=== PATIENT | male | born 1950 | race Caucasian/White ===

== ENCOUNTER 2016-05-16 15:40 | Emergency (ER) | payer MEDICARE, MEDICAID ==
[~2016-05-16] VITALS: Ht 177.8 cm; Wt 91.0 kg
[~2016-05-16 15:40] MED LIST: ASPI-611 PO; DIVA500T55 PO; DONE10TA15 PO; IBUP-1324 PO; MEMA10TA11 PO; METO25TA6 PO; MIRT15TA6 PO; NITR0.4T SL; OMEP-29 PO; OSEL75CA PO; SERT100T12 PO; SIMV20TA89 PO
--- OUTSIDE RECORDS SUMMARY | 2016-05-16 15:44 | XMS REPORT | Summary of Care ---
Author Author Maged Delgado M.D. Organization Unknown Address Unknown Phone Unavailable Care Team Providers Care Beer Cooler Name Role Phone Braxton Delgado M.D. Unavailable Unavailable Mago [address] Unavailable Unavailable Unavailable Unavailable Functional Status Name Dates Details Functional status health issues are not documented Status: Name Dates Details Cognitive status health issues are not documented Status: Problems Name Dates Details Confusion (Symptom) Status: Active Memory loss (780.93, R41.3) Status: Active High risk medication use (V58.69, Z79.899) Status: Active Alzheimer's disease (331.0, G30.9) Status: Active Medications Name Dates Details Divalproex Sodium ER 500 MG Oral Tablet Extended Release 24 Hour TAKE TWO TABLETS BY MOUTH ONCE DAILY Quantity: 60 Danny Jackson, Maged Limon * Start 19-Feb-2009 Active Aspirin 325 MG Oral Tablet TAKE 1 TABLET DAILY. * Refills: 0 * Start 20-Feb-2009 Active Nitroglycerin 0.4 MG Sublingual Tablet Sublingual TAKE DIRECTED. * Refills: 0 * Start 20-Feb-2009 Active Simvastatin 20 MG Oral Tablet TAKE 1 TABLET DAILY. * Refills: 0 * Start 20-Feb-2009 Active PriLOSEC 20 MG CPDR TAKE 1 CAPSULE DAILY. * Refills: 0 * Start 20-Feb-2009 Active Memantine HCl - 10 MG Oral Tablet Take One Tablet By Mouth Twice Daily * Quantity: 60 Refills: 5 Maged Delgado M.D. * Start 05-Feb-2016 Active Metoprolol Succinate ER 25 MG Oral Tablet Extended Release 24 Hour 1\2 tab po daily * Refills: 0 * Start 18-Jun-2009 Active Donepezil HCl - 10 MG Oral Tablet TAKE 1 TABLET DAILY. * Quantity: 30 Refills: 6 Maged Delgado M.D. * Start 16-Apr-2010 Active Sertraline HCl - 100 MG Oral Tablet TAKE 1 TABLET DAILY. * Refills: 0 Maged Delgado M.D. Start 16-Apr-2010 Active Allergies and Adverse Reactions Name Dates Details Penicillins (Allergy) Status: Active Procedures Procedure Dates Details History of Tonsillectomy History of Heart Surgery Procedures not documented Immunization Name Dates Details Immunizations not documented Social History Name Dates Details Unknown if ever smoked Vital Signs Date Test Result Details 25-Mar-2016 16:07 BP Systolic 104 mm[Hg] Status: Comments: Location: ; Position: BP Diastolic 60 mm[Hg] Status: Comments: Location: ; Position: Heart Rate 76 /min Status: Comments: Location: ; Weight 194 lb Status: Results Date Description Value Details Results not documented Plan of Care Name Dates Details Planned Observations Planned Goals not documented Planned Encounters Appointment; Provider: Maged Delgado M.D. On 16-Sep-2016 15:30 Instructions Name Dates Details Instructions not documented Encounters Appointment; Maged Delgado M.D. Encounter Diagnosis: Problem not documented On 16-Dec-2015 16:00 Appointment; Maged Delgado M.D. Encounter Diagnosis: Problem not documented On 12-Jun-2015 16:00 Appointment; Maged Delgado M.D. Encounter Diagnosis: Problem not documented On 14:30
[2016-05-16 15:45] VITALS: Ht 177.8 cm; Wt 91.0 kg
--- OUTSIDE RECORDS SUMMARY | 2016-05-16 15:45 | XMS REPORT | Continuity of Care Document ---
Author Author [facility] Organization [facility] Address Unknown Phone Unavailable Support Name Relationship Address Phone KEISHA SEXTON II, MD Caregiver [address] [place] [address] Unavailable EDGAR COLLINS MD Caregiver [address] [place] [address] Unavailable SLECHTA MATTI B DO Caregiver [address] [place] [address] Unavailable MATTI ARAGON DO Caregiver [address] [place] [phone] Unavailable WILLOW [place] [address] Insurance Providers Guarantor Deann Gutierrez Address [address] [place], [place] [id number] - Email [email or web address] Payer [facility] State Plan Policy Number [id number] Subscriber's Name Deann Gutierrez Relationship 18 Self Effective Date 16 Expiration Date 16 Payer Medicare Policy Number [id number] Subscriber's Name Deann Gutierrez Relationship 18 Self Effective Date 09 Advance Directives Directive Response Recorded Date/Time Advanced Directives Type DNR Documentation Living Will DPOA for Healthcare 03/06/16 12:50pm Ordered Resuscitation Status Do Not Resuscitate 03/06/16 2:51pm DPOA for Healthcare Only Y -Elham Chavez-Henry 03/06/16 6:14pm Living Will No 03/06/16 3:34pm Chief Complaint and Reason for Visit Chief Complaint INFLUENZA,WEAKNESS Reason for Visit Dehydration Influenza A Problems Active Problems Medical Problem Onset Date Status Dehydration Unknown Influenza A Unknown Acute Thrombocytopenia Unknown Tremor Unknown Upper respiratory disease Unknown Acute Weakness Unknown Acute Medications Current Home Medications Medication Dose Units Route Directions Days Qty Instructions Start Date Aspirin 81 Mg Tablet 81 Mg Oral Daily 07/23/10 Divalproex Sodium (Divalproex Sodium Er) 500 Mg Tab.er.24h 1,000 Mg Oral Daily 03/06/16 Donepezil Hcl (Aricept) 10 Mg Tablet 10 Mg Oral Bedtime 07/23/10 Ibuprofen 200 Mg Tablet 400 Mg Oral Every 4 Hours as needed for Pain 04/11/13 Memantine Hcl (Namenda) 10 Mg Tablet 10 Mg Oral Twice A Day 07/23 Metoprolol Tartrate 25 Mg Tablet 12.5 Mg Oral Daily 03/06/16 Mirtazapine 15 Mg Tablet 15 Mg Oral Bedtime 03/06/16 Nitroglycerin (Nitrostat) 0.4 Mg Tablet 0.4 Mg Sublingual Every 5 Minutes X 3 as needed for Chest Pain 03/06/16 Omeprazole (Prilosec) 20 Mg Capsule.dr 20 Mg Oral Twice A Day 10/25 Oseltamivir Phosphate (Tamiflu) 75 Mg Capsule 75 Mg Oral Twice A Day 3 Days 6 Capsule 03/08/16 Sertraline Hcl (Sertraline) 100 Mg Tablet 100 Mg Oral Daily 03/06 Simvastatin 20 Mg Tablet 20 Mg Oral Bedtime 07/23/10 Past Home Medications Medication Directions Ordered Status Aricept , 06/23/10 Discontinued Asa 81MG , 06/23/10 Discontinued Aspirin 325 Mg Tablet, 325 Mg Oral Daily 05/02/09 Discontinued Bupropion Hcl (Budeprion Xl) 300 Mg Tab.sr.24h, 450 Mg Oral Daily 11/18/08 Discontinued Depacote , 06/23/10 Discontinued Divalproex Sodium 500 Mg Tablet.dr, 500 Mg Oral Twice A Day 05/02/09 Discontinued Donepezil Hcl (Aricept) 10 Mg Tablet, 10 Mg Oral Daily 11/18/08 Discontinued Memantine Hcl (Namenda) 5 Mg Tablet, 5 Mg Oral Daily 05/02/09 Discontinued Metoprolol Succinate 25 Mg Tab.sr.24h, 25 Mg Oral Daily 05/02/09 Discontinued Namenda , 06/23/10 Discontinued Nitro , 06/23/10 Discontinued Nitroglycerin 0.4 Mg Tab.subl, 0.4 Mg Sublingual As Needed 07/23/10 Discontinued Omeprazole , 06/23/10 Discontinued Omeprazole (Prilosec) 20 Mg Capsule.dr, 20 Mg Oral Bedtime 11/18/08 Discontinued Prozac , 06/23/10 Discontinued Simvastatin 20 Mg Tablet, 20 Mg Oral Bedtime 05/02/09 Discontinued Social History Social History Problem Response Recorded Date/Time Onset Date Status Reason for Hospitalization influenza/weakness 03/08/2016 9:34am Not Applicable Not Applicable Chewing Tobacco Status No 05/03/2013 1:46pm Not Applicable Not Applicable Hx Substance Use No 03/06/2016 1:01pm Not Applicable Not Applicable Hx Alcohol Use N SOBER FOR 30 YEARS 03/06/2016 1:01pm Not Applicable Not Applicable Has the pt used tobacco in the last 12 months No 03/06/2016 3:38pm Not Applicable Not Applicable Query Response Start Date Stop Date Smoking Status Never smoker Hospital Discharge Instructions Instructions: Care Instructions: I was in the hospital because (patient own words): unable to say-severe alzheimers Discharge Diet: regular Discharge Activity: ad avni Follow Up Appointments: appt with Dr. Aragon in 1 week [phone] 03/15 AT 2:15. Pending Lab / Results: No Pending Lab Expected Signs/Symptoms: Call if getting worse and not continuing to improve. Notify Physician If: getting worse During Business Hours:: Please call the physician's office at [phone] After Business Hours:: Please call [phone] and have the malter operator page the physician. Pain Management/Treatment: N/A Wound/Incision Care: N/a Condition at time of discharge: Good Plan of Care Discharge Date 03/08/16 12:17pm Disposition 06 HOME HEALTH SERVICE Instructions/Education Provided [facility] Congestive Heart Failure Prescriptions See Medication Section Care Plan and Goals See Discharge Instructions Section Functional Status Query Response Date Recorded Mobility Status Ambulatory March 06, 2016 3:28pm Assistive Devices None March 06, 2016 3:28pm Activity Limitations Weakness Fatigue Shortness of breath Pain Cough March 06, 2016 3:28pm Feeding Ability Independent March 06, 2016 3:28pm Toileting Ability Independent March 06, 2016 3:28pm Grooming Ability Assist March 06, 2016 3:28pm Dressing Ability Assist March 06, 2016 3:28pm Driving Ability Dependent March 06, 2016 3:28pm Housework Ability Dependent March 06, 2016 3:28pm Meal Preparation Ability Dependent March 06, 2016 3:28pm Stair Climbing Ability Assist March 06, 2016 3:28pm Ability to complete ADL's impeded by Impaired Mobility Change in Cognition March 06, 2016 3:34pm Cognitive/Perceptual Impairments Impaired vision Impaired hearing March 06, 2016 3:28pm Visual Assistive Devices Glasses March 06, 2016 3:28pm Allergies, Adverse Reactions, Alerts Allergen Type Severity Reaction Status Last Updated Penicillin Adverse Reaction Unknown RASH Active 03/06/16 Immunizations Query Response on File Recorded Date/Time Hx Influenza Vaccination Y FEB 2016 03/06/16 3:38pm Hx Pneumococcal Vaccination Y summer 201103/06/16 3:38pm Hx Tetanus, Diptheria, Pertussis NA NO SKIN DISRUPTIONS 06/08/12 5:45pm Hx Influenza Vaccination Y FEB 2016 03/06/16 3:38pm Hx Tetanus, Diptheria, Pertussis NA NO SKIN DISRUPTIONS 06/08/12 5:45pm Influenza Vaccine Hx FEB 2011 03/07/16 10:29am Vital Signs Acute Vital Signs Vital Response Date/Time Temperature (Fahrenheit) 96.7 deg F (96.8 - 99.1) 03/08/2016 9:00am Temperature (Calculated Celsius) 35.75954 degrees C (36.0 - 37.3) 03/08/2016 9:00am Pulse Rate (adult) 76 bpm (60 - 100) 03/08/2016 9:00am Respiratory Rate 18 breaths/min (10 - 20) 03/08/2016 9:00am O2 Sat by Pulse Oximetry 95 % (90 - 100) 03/08/2016 9:00am Oxygen Delivery Method Room Air 03/08/2016 9:00am Blood Pressure 162/93 mm Hg 03/08/2016 9:00am Blood Pressure Source Automatic Cuff 03/08/2016 9:00am Height (Feet) 6 feet 03/06/2016 6:14pm Height (Inches) 0.00 inches 03/06/2016 6:14pm Weight (Kilograms) 90.800 kg 03/08/2016 9:01am Body Mass Index (BMI) 26.8 03/06/2016 3:38pm Results Laboratory Results Test Name Result Units Flags Reference Collection Date/Time Result Date/ Time Comments White Blood Count 5.1 T/MM3 4.5-11.0 03/08/2016 6:08am 03/08/2016 6: 23am Red Blood Count 4.18 M/MM3 L 4.50-5.90 03/08/2016 6:08am 03/08/2016 6: 23am Hemoglobin 13.6 GM/DL 13.5-17.5 03/08/2016 6:08am 03/08/2016 6:23am Hematocrit 41.7 % 41-53 03/08/2016 6:08am 03/08/2016 6:23am Mean Corpuscular Volume 99.8 UM3 80-100 03/08/2016 6:08am 03/08/2016 6: 23am Mean Corpuscular Hemoglobin 32.5 UUG 26-34 03/08/2016 6:08am 2016 6:23am Mean Corpuscular Hemoglobin Concent 32.6 GM/DL 31-37 03/08/2016 6:08am 03/08/2016 6:23am RDW Standard Deviation 47.9 FL 36.9-50.2 03/08/2016 6:08am 03/08/2016 6 :23am Platelet Count 102 T/MM3 L 130-400 03/08/2016 6:08am 03/08/2016 6:23am Mean Platelet Volume 10.7 UM3 9.4-12.4 03/08/2016 6:08am 03/08/2016 6: 23am Neutrophils (%) (Auto) 51.5 % 33-66 03/08/2016 6:08am 03/08/2016 6: 23am Lymphocytes (%) (Auto) 31.1 % 23-45 03/08/2016 6:08am 03/08/2016 6: 23am Monocytes (%) (Auto) 14.1 % H 0-9.0 03/08/2016 6:08am 03/08/2016 6:23am Eosinophils (%) (Auto) 2.5 % 0-4 03/08/2016 6:08am 03/08/2016 6:23am Basophils (%) (Auto) 0.6 % 0-2 03/08/2016 6:08am 03/08/2016 6:23am Immature Granulocyte % (Auto) 0.2 % 0.0-0.5 03/08/2016 6:08am 2016 6:23am Absolute Neutrophils (auto) 2.6 T/MM3 1.8-7.7 03/08/2016 6:08am 2016 6:23am Absolute Lymphocytes (auto) 1.6 T/MM3 1-4.8 03/08/2016 6:08am 2016 6:23am Absolute Monocytes (auto) 0.7 T/MM3 0-0.8 03/08/2016 6:08am 03/08/2016 6:23am Absolute Eosinophils (auto) 0.1 T/MM3 0-0.5 03/08/2016 6:08am 2016 6:23am Absolute Basophils (auto) 0.0 T/MM3 0-0.2 03/08/2016 6:08am 03/08/2016 6:23am Absolute Immature Granulocyte (auto 0.01 T/MM3 0.00-0.03 03/08/2016 6: 08am 03/08/2016 6:23am Icterus Index < 2 0-7 03/06/2016 1:pm 03/06/2016 1:37pm Chemistry Specimen Hemolysis 16 0-25 03/06/2016 1:03/06/2016 1: 37pm 0-25: Specimen Exhibited No Hemolysis. Turbidity < 20 0-20 03/06/2016 1:pm 03/06/2016 1:37pm Sodium Level 144 MEQ/L 134-144 03/06/2016 1:03/06/2016 1:37pm Potassium Level 3.8 MEQ/L 3.6-5 03/06/2016 1:03/06/2016 1:37pm Chloride Level 104 MEQ/L 98-107 03/06/2016 1:03/06/2016 1:37pm Carbon Dioxide Level 26 MEQ/L 22-30 03/06/2016 1:03/06/2016 1: 37pm Anion Gap 14 MEQ/L 5-15 03/06/2016 1:03/06/2016 1:37pm Blood Urea Nitrogen 16.0 MG/DL 9-03/06/2016 1:03/06/2016 1: 37pm Creatinine 0.9 MG/DL 0.8-1.5 03/06/2016 1:03/06/2016 1:37pm BUN/Creatinine Ratio 18 RATIO 6-03/06/2016 1:03/06/2016 1:37pm Glomerular Filtration Rate Calc 84 03/06/2016 1:03/06/2016 1: 37pm Glucose Level 88 MG/DL 75-110 03/06/2016 1:03/06/2016 1:37pm Calculated Osmolality 277 MOSM/KG 261-280 03/06/2016 1:23pm 03/06/2016 1:37pm Calcium Level 8.8 MG/DL 8.4-10.2 03/06/2016 1:23pm 03/06/2016 1:37pm Troponin I < 0.012 ng/ml 0-0.12 03/06/2016 1:23pm 03/06/2016 1:49pm Troponin values with a difference of 55% increase from orginal troponin value represent a true biological DELTA value. (%increase Calc=Orginal Troponin value, divided by subsequent Troponin value, multiplied by 100) Influenza Type A Antigen POSITIVE H NEGATIVE 03/06/2016 1:28pm 2016 1:52pm If clinical symptoms do not support these results, consider ordering the "Respiratory Panel, PCR". Influenza Type B Antigen NEGATIVE NEGATIVE 03/06/2016 1:28pm 2016 1:52pm Negative for Flu B protein antigen. Assay sensitivity is 90%. Urine Collection Type CLEANCATCH-MIDSTREAM 03/06/2016 2:08pm 2016 2:15pm Urine Color YELLOW YELLOW 03/06/2016 2:08pm 03/06/2016 2:15pm Urine Turbidity CLEAR CLEAR 03/06/2016 2:08pm 03/06/2016 2:15pm Urine Specific [place] 1.020 1.015-1.025 03/06/2016 2:08pm 2016 2:15pm Urine pH 8.5 H 5.0-8.0 03/06/2016 2:08pm 03/06/2016 2:15pm Urine Leukocyte Esterase NEGATIVE NEGATIVE 03/06/2016 2:08pm 2016 2:15pm Urine Nitrite NEGATIVE NEGATIVE 03/06/2016 2:08pm 03/06/2016 2:15pm Urine Protein TRACE A NEGATIVE 03/06/2016 2:08pm 03/06/2016 2:15pm Urine Glucose (UA) NEGATIVE NEGATIVE 03/06/2016 2:08pm 03/06/2016 2: 15pm Urine Ketones NEGATIVE NEGATIVE 03/06/2016 2:08pm 03/06/2016 2:15pm Urine Urobilinogen 1.0 EU/DL NORMAL 03/06/2016 2:08pm 03/06/2016 2: 15pm Urine Bilirubin NEGATIVE NEGATIVE 03/06/2016 2:08pm 03/06/2016 2: 15pm Urine Blood NEGATIVE NEGATIVE 03/06/2016 2:08pm 03/06/2016 2:15pm Urinalysis Comment MICROSCOPIC NOT IND. 03/06/2016 2:08pm 2016 2:15pm Name: DEANN GUTIERREZ Unit #: [id number] : 1950 Sex: M Admit Date: 03/06/16 Loc / Svc: MED Discharge Date: DIAGNOSTIC IMAGING [id number]: ITS.REASON: fever, weakness PROCEDURE: CHEST 1 VIEW: Encounter: Initial Comparison: August 10, 2011 Findings: The lungs are stable in appearance without new focal airspace consolidation. There is no pleural effusion or pneumothorax. The heart size, pulmonary vascularity and mediastinal contours are unchanged. IMPRESSION: Stable appearance of the chest without acute cardiopulmonary disease. . Procedures No known history of procedures. Encounters Encounter Location Arrival/Admit Date Discharge/Depart Date Attending Provider Admitted Inpatient (obs) [facility] 03/06/16 2:51pm MATTI ARAGON DO Recent Diagnosis Dehydration Influenza A
--- NOTE | 2016-05-16 15:55 | NUR ---
TO CT PER WC AT CT PT REFUSED TO LIE DOWN HITTING AT & [facility]ARE[facility]. CT NOT OBTAINED
--- NOTE | 2016-05-16 16:05 | NUR ---
TO RM 2 PER WC. PT REFUSES TO SIT ON BED. RETURNED PT TO . PT REFUSES TO TAKE JACKET OFF.
[2016-05-16] MEDS ORDERED: NORMAL SALINE 1,000 ML IV ONE (16:10)
[2016-05-16] MEDS ORDERED: ASENAPINE 5mg SUBLINGUAL TAB SL ONE (16:15)
--- NOTE | 2016-05-16 16:29 | ERPDOC ---
Departure Disposition Decision Date: May 16, 2016 Disposition Decision Time: 18:30 Disposition: 01 DISCHARGED HOME, SELF-CARE Impression Impression Impression: Primary Impression: Other abnormalities of gait and mobility Additional Impressions: Cystitis Bacteriuria Severity: Mild Condition: Stable Seen By: Physician only Referrals: MATTI ARAGON DO (Family) 1 Week Patient Instructions: Urinary Tract Infection in Men (ED) Problems/Meds/Labs Reviewed?: Yes Medications reviewed and manag: Yes Additional Instructions: Home to rest this evening. Continue to encourage fluids. Start antibiotic as directed. Follow up with PCP if not getting better. Follow up care ordered?: Yes Mental Status: Alert, Confused Scripts Cephalexin (Cephalexin) 500 Mg Tablet 1 TAB PO TID for 7 Days, #21 TAB 0 Refills Prov: ANIKA MOMIN MD 05/16/16 HPI - CVA/Neuro General Chief Complaint: Altered Mental Status Stated Complaint: PATIENT LEANING TO ONE SIDE/UNSTEADY Time Seen by Provider: 15:51 Source: patient, family (), RN notes reviewed, old records Exam Limitations: dementia (patient will not communicate with us and is beeligerant and comabative with nurses and won't lay still for CT) Onset of Symptoms Onset of Symptoms Date: May 16, 2016 Onset of Symptoms Time: 14:00 HPI - CVA/NEURO Initial Comments This patient is borught in by his for a sudden onset of altered mental status. This has happened before and is usually a UTI or pneumonia. his had a right sided list -- kind of unsteady on the right. No fever, no cough. He Occurred At: home Onset/Timing: Rapid Duration: 1-3 hrs Pain/Severity Scale: Now: Unable to Rate Associated Symptoms: confusion, trouble walking Hx of Similar Symptoms: Yes Affected Areas/Deficit Locatio: Right Leg Allergies: Coded Allergies: Penicillins (Verified Adverse Reaction, Unknown, RASH, 05/16/16) Past History Patient Surgical History heat cath leg/ankle surgery Past Medical History ENMT: allergies Cardiac: CAD GI: GERD Neurological: other Psychological: dementia Surgical History General: tonsils Cardiac: cardiac stent Reproductive/: other Vaccines Hx Influenza Vaccination: Yes (FEB 2016) Hx Pneumococcal Vaccination: Yes (SUMMER 2011) Social History Smoking Status: Unknown if ever smoked Substance Use Type: does not use Alcohol Intake: none Marital Status: Sexuality: female partner Housing: house Service: Yes Occupational Hazard: Yes Record Review Pertinent history updated: Yes Review of Systems Unable to Obtain ROS Due to: dementia Comments pt will not communicate with us verbally Constitutional Constitutional: appetite decrease, see HPI, weakness, DENIES: chills, dizziness , fever Physical Exam General General Nourishment: well nourished, well developed, appears stated age, no acute distress, adult General Body Habitus: well groomed Vitals and Pain First Documented Vital Signs Date Time Temp Pulse Resp B/P Pulse Ox O2 Delivery O2 Flow Rate FiO2 05/16/16 15:45 98.7 67 17 165/78 98 Room Air Weight: Kilograms: 91.000 Height (feet): 5 Height (inches): 10.00 Triage Pain Scale: RN VS reviewed by Provider: Yes Comments was combative initially with nurses and would not do CT head. CAlmed down with one dose Saphris. Normal Exams: Head: Normocephalic w/o trauma Eyes: Pupils are PERRLA w/ EOMI, No scleral icterus, irritation, or foreign bodies noted ENMT: No facial trauma, nasal exudates, pharyngeal erythema, or exudates are noted Neck: Full range of motion, without adenopathy, JVD, bruits or thyromegaly Chest/Resp: Clear all licona, with good airflow, and symmetry bilaterally CV: Regular rate and rhythm, without murmur or gallop, Pulses 2+ all extremities, capillary refill, <2 seconds all ext., no pedal edema noted Abdomen: Bowel sounds positive, soft, non-tender, non-distended, no hepatosplenomegaly, masses or bruits noted Musculoskeletal: No tenderness, or deformity noted, good range of motion, all extremities Integumentary: No rashes, hives, or bruising noted, hair and nails, without abnormality Neurologic: Patient is alert, cranial nerves Psychiatric: Patient exhibits, appropriate attention Neurologic (brief) Comments refuses to talk while in ER. Appears to move all extremities equally while sitting down in ER. Psychiatric (brief) Comments initially combative Differential Diagnoses Considering: Delirium, Hypo/hypercalcemia, Hypo/hyperglycemia, Hypo/ hypernatremia, Medication Effect, TIA, Other (UTI or pneumonia or other infection) Progress Results/Orders Orders Procedure Category Date Status Time Bmp - Basic Metabolic LAB 05/16/16 Complete Panel 16:10 Cbc W/Auto LAB 05/16/16 Complete Diff-Reflex Manual 16:10 Ethanol LAB 05/16/16 Complete 16:10 Tsh - Thyroid Stim LAB 05/16/16 Complete Hormone 16:10 Troponin I W LAB 05/16/16 Complete Hemolysis Index 16:10 Drug Screen LAB 05/16/16 Logged Urine-Test At [facility] 16:10 Bgm (Ed) EDM 05/16/16 Transmitted 16:10 EKG EKG 05/16/16 Taken 16:10 Chest 1 View RAD 05/16/16 Taken 16:10 Iv Lock (Ed Only) EDM 05/16/16 Transmitted 16:10 Normal Saline (Normal PHA 05/16/16 Complete Saline Iv) 16:10 Oxygen Administration EDM 05/16/16 Transmitted 16:10 Nothing By Mouth (Ed EDM 05/16/16 Transmitted Only) 16:10 Asenapine Maleate PHA 05/16/16 Complete (Saphris) 16:15 UA, LAB 05/16/16 Complete Dip&Micro(Complete) & 17:44 Lab Results Laboratory Tests Test 05/16/16 16:29 05/16/16 16:35 05/16/16 17:44 Glucometer 75mg/dL White Blood Count 6.9T/MM3 Red Blood Count 4.59M/MM3 Hemoglobin 15.2GM/DL Hematocrit 44.8% Mean Corpuscular Volume 97.6UM3 Mean Corpuscular Hemoglobin 33.1UUG Mean Corpuscular Hemoglobin Concent 33.9GM/DL RDW Standard Deviation 45.1FL Platelet Count 155T/MM3 Mean Platelet Volume 10.8UM3 Immature Granulocyte % (Auto) 0.3% Neutrophils (%) (Auto) 58.8% Lymphocytes (%) (Auto) 28.1% Monocytes (%) (Auto) 10.0% Eosinophils (%) (Auto) 2.2% Basophils (%) (Auto) 0.6% Absolute Immature Granulocyte (auto 0.02T/MM3 Absolute Neutrophils (auto) 4.1T/MM3 Absolute Lymphocytes (auto) 1.9T/MM3 Absolute Monocytes (auto) 0.7T/MM3 Absolute Eosinophils (auto) 0.2T/MM3 Absolute Basophils (auto) 0.0T/MM3 Turbidity 20 Sodium Level 148MEQ/L Potassium Level 4.2MEQ/L Chloride Level 106MEQ/L Carbon Dioxide Level 29MEQ/L Anion Gap 13MEQ/L Blood Urea Nitrogen 22.0MG/DL Creatinine 1.0MG/DL Glomerular Filtration Rate Calc 75 BUN/Creatinine Ratio 22RATIO Glucose Level 87MG/DL Calculated Osmolality 286MOSM/KG Calcium Level 9.0MG/DL Icterus Index < 2 Troponin I < 0.012ng/ml Thyroid Stimulating Hormone (TSH) 2.25MIU/L Chemistry Specimen Hemolysis < 15 Alcohol, Quantitative <10MG/DL Urine Collection Type Urine Color Yellow Urine Turbidity Clear Urine pH 7.0 Urine Specific [place] <=1.005 Urine Protein Negative Urine Glucose (UA) Negative Urine Ketones Negative Urine Blood 2+ Urine Nitrite Negative Urine Bilirubin Negative Urine Urobilinogen 0.2EU/DL Urine Leukocyte Esterase Negative Urine RBC 0-1/HPF Urine WBC 0-1/HPF Urine Squamous Epithelial Cells 5-10 Urine Bacteria 1+ Urine Culture Indicated Cult not indicated Medications Current ED Medications Sodium Chloride (Normal Saline IV) 1,000 ml @ 0 mls/hr Q0M ONCE IV Last administered on 05/16/16 16:41; Start 05/16/16 at 16:10; Stop 05/16/16 at 16:12; Status DC Asenapine (Saphris) 5 mg O ONCE SL Last administered on 05/16/16 16:21; Start 05/16/16 at 16:15; Stop 05/16/16 at 16:16; Status DC Progress Progress Labs look pretty good, BUN sl;ightly elevated, so he was given 1 liter of IV fluids as the says dehydration sometimes makes him list like this. Urine was given without the catheter and noted to have some blood in it -- ? hemorrhagic cystitis. Will treat with antibiotics for a few days. Patient was able to stand and felt like he was better before they left the ER. EKG EKG : Rate: 60-100 Rhythm: sinus Holland: left QRS: LBBB Intervals: normal ST/T: non-specific changes Interpreted by: signing physician EKG Comments last EKG on 07/13/11 does not show LBBB or LAD -- this is a new finding today ANIKA MOMIN MD May 16, 2016 16:29
--- NOTE | 2016-05-16 16:45 | NUR ---
STATUS PT REMAINS IN WC. SITS WITH HIM. HE HAS ALLOWED US TO DO IV, EKG, BLOOD. IV INFUSES. ASSESSMENT COMPLETED. SAYS HE WAS "LISTING" THIS PM & SHE WAS AFRAID HE WAS GOING TO GET SICK
[2016-05-16 16:47] LABS: BASOPHILS % (AUTO) 0.6 % (0-2); EOSINOPHILS # (AUTO) 0.2 T/MM3 (0-0.5); EOSINOPHILS % (AUTO) 2.2 % (0-4); HCT - HEMATOCRIT 44.8 % (41-53); HGB - HEMOGLOBIN 15.2 GM/DL (13.5-17.5); IMMATURE GRANULOCYTE # (AUTO) 0.02 T/MM3 (0.00-0.03); IMMATURE GRANULOCYTE % (AUTO) 0.3 % (0.0-0.5); LYMPHOCYTES # (AUTO) 1.9 T/MM3 (1-4.8); LYMPHOCYTES % (AUTO) 28.1 % (23-45); MEAN CORPUSCULAR HGB 33.1 UUG (26-34); MEAN CORPUSCULAR HGB CONC(MCHC 33.9 GM/DL (31-37); MEAN CORPUSCULAR VOLUME 97.6 UM3 (80-100); MEAN PLATELET VOLUME 10.8 UM3 (9.4-12.4); MONOCYTES # (AUTO) 0.7 T/MM3 (0-0.8); NEUTROPHILS #(AUTO)-ABSOLUTE 4.1 T/MM3 (1.8-7.7); NEUTROPHILS % (AUTO) 58.8 % (33-66); RED BLOOD COUNT 4.59 M/MM3 (4.50-5.90); WBC - WHITE BLOOD COUNT 6.9 T/MM3 (4.5-11.0)
[2016-05-16 16:51] LABS: ANION GAP 13 MEQ/L (5-15); BUN/CREATININE RATIO 22 RATIO (6-26); CHLORIDE 106 MEQ/L (98-107); CO2 - CARBON DIOXIDE 29 MEQ/L (22-30); ETHANOL <10 MG/DL (<10); GLOMERULAR FILTRATION RATE 75; GLUCOSE 87 MG/DL (75-110); POTASSIUM 4.2 MEQ/L (3.6-5); SODIUM 148 MEQ/L (134-144)
--- NOTE | 2016-05-16 16:54 | NUR ---
DR Edward MOMIN IN TO SEE PT.
--- NOTE | 2016-05-16 17:15 | NUR ---
REPORT TO DINO GALINDO
[2016-05-16 18:01] LABS: THYROID STIM HORMONE-TSH 2.25 MIU/L (0.47-4.68)
[2016-05-16 18:07] LABS: BLOOD, URINE 2+ (NEGATIVE); COLOR,URINE YELLOW (YELLOW); LEUKOCYTE ESTERASE ,URINE NEGATIVE (NEGATIVE); NITRITE,URINE NEGATIVE (NEGATIVE); UROBILINOGEN,URINE 0.2 EU/DL (NORMAL)
--- NOTE | 2016-05-16 18:16 | NUR ---
ACTIVITY PATIENT AMBULATES FROM WHEELCHAIR TO COMMODE. REPORTS PATIENT IS STANDING STRAIGHTER.
[2016-05-16 18:18] LABS: BACTERIA,URINE 1+ (NEGATIVE); RBC,URINE 0-1 /HPF (0-3); WBC,URINE 0-1 /HPF (0-5)
[2016-05-16] MEDS ORDERED: CEPH500T PO (18:36)
[2016-05-16 19:03] VITALS: BP 160/80; PULSE 72; RESP 16; TEMP 97.6; O2SAT 96
--- NOTE | 2016-05-17 08:04 | DI ---
Indication: ITS.REASON: altered mental status PROCEDURE: CHEST 1 VIEW: Encounter: Initial Comparison: March 06, 2016 Findings: Patient is rotated towards the left. There is slight motion artifact. No definite consolidative pneumonia. There is continued slight haziness in the left retrocardiac region. No pneumothorax or effusion. Heart size is stable. Mediastinal contours are poorly evaluated given the rotation. Pulmonary vascularity is normal. Impression: No focal pneumonia. .
== END 2016-05-16 19:03 | disposition home or self-care (01) ==
LOC: ED 15:40
DX: N30.91 Cystitis, unspecified with hematuria (principal); R82.71 Bacteriuria; R26.81 Unsteadiness on feet
CPT/HCPCS: 71010; 80048; 80307; 81001; 82948; 84443; 84484; 85025; 93005; 96360; 99284; J7030